=== PATIENT | male | born 1945 | race Two or more races ===

== ENCOUNTER 2022-02-22 11:30 | Emergency (ER) | payer OTHER ==
[~2022-02-22] VITALS: Ht 182.9 cm; Wt 95.3 kg
[2022-02-22] MEDS ORDERED: LANTUS SOL100 UNIT/1 SQ (11:36)
[2022-02-22] MEDS ORDERED: HUMALOG100 UNIT/2 SQ (11:36)
[2022-02-22] MEDS ORDERED: TOPROL XL50 M1 PO (11:38)
[2022-02-22] MEDS ORDERED: GRALISE600 MG PO (11:39)
[2022-02-22] MEDS ORDERED: LASIX20 MG PO (11:39)
[2022-02-22] MEDS ORDERED: ZEGERID 40 MG1 EACH PO (11:39)
[2022-02-22] MEDS ORDERED: FERROUS FUMARAT89 MG PO (11:39)
[2022-02-22] MEDS ORDERED: CHILDREN'S ASPI81 MG PO (11:39)
== END 2022-02-22 14:59 ==
LOC: ER 11:30
DX: S20.20XA Contusion of thorax, unspecified, initial encounter (principal); W18.39XA Other fall on same level, initial encounter; Y93.9 Activity, unspecified; Y92.9 Unspecified place or not applicable; Y99.9 Unspecified external cause status; E11.9 Type 2 diabetes mellitus without complications; I10 Essential (primary) hypertension; Z85.828 Personal history of other malignant neoplasm of skin; Z79.4 Long term (current) use of insulin; Z79.82 Long term (current) use of aspirin